=== PATIENT | male | born 1945 | race Caucasian/White ===

== ENCOUNTER 2017-04-17 08:10 | Day surgery (SDC) | payer MEDICARE, BC ==
[~2017-04-17 08:10] MED LIST: Lactated Ringers 1,000 ML IV SCH
[2017-04-17] MEDS ORDERED: fentaNYL 100 MCG/2 ML SDV ONE (09:19)
[2017-04-17] MEDS ORDERED: Ketorolac 30 MG/ML SDV ONE (09:21)
[2017-04-17] MEDS ORDERED: Midazolam 1 MG/ML 2 ML SDV ONE (09:21)
[2017-04-17] MEDS ORDERED: Propofol 200 MG/20 ML SDV ONE (09:22)
[2017-04-17] MEDS ORDERED: Bupivacaine 0.25%/EPINEPHrine 1:200,000 30 ML SDV ONE (10:04)
[2017-04-17] MEDS ORDERED: Bupivacaine 0.25%/EPINEPHrine 1:200,000 30 ML SDV INFILT ONE ×2 (10:19)
[2017-04-17] MEDS ORDERED: Acetaminophen/HYDROcodone 325-5 MG Tab PO PRN (12:28)
[2017-04-17 13:06] VITALS: BP 114/72
--- NOTE | 2017-04-17 14:12 | OR ---
PREOPERATIVE DIAGNOSIS: Symptomatic umbilical hernia. POSTOPERATIVE DIAGNOSIS: Symptomatic umbilical hernia. PROCEDURE PROPOSED: Umbilical hernia repair. PROCEDURE DONE: Umbilical hernia repair. BOTTLE WASHER: Zeinab. INDICATION: This is a 71-year-old gentleman with a symptomatic longstanding umbilical hernia, of not very large size who now comes in for elective repair. TECHNIQUE: The patient was brought to the operative suite, given MAC anesthesia with propofol. His abdomen had been sterilely prepped and draped and the sub umbilical region was then locally anesthetized with 0.25% Marcaine with epinephrine and a transverse infraumbilical incision was made, carried down through the subcutaneous tissue to the underlying fascia. I then dissected the hernia sac free from the undersurface of the skin of the umbilicus. I was then able to have my nurse place 2 retractors and I dissected the hernia sac free flush with the fascia level; reduced the preperitoneal fat contents and the defect was closed transversely with approximately 6 stitches of interrupted 0- Ethibond suture. The base of the umbilicus was then anchored to the fascia with 2 stitches of 3-0 Vicryl and the subcutaneous tissue was then reapproximated with interrupted 3-0 Vicryl. The skin was then closed with a subcuticular stitch of 4 Vicryl and a pressure dressing was applied. He tolerated the procedure well with minimal blood loss and was taken back to day surgery in good condition. SCM: 04/17/2017 10:47:48 MODL: 04/17/2017 14:01:45 /[id number]
== END 2017-04-17 13:05 | disposition home or self-care (01) ==
LOC: VM.SDS 08:10
PROVIDERS: ATTEND Surgery
DX: K42.9 Umbilical hernia without obstruction or gangrene (principal); I12.9 Hypertensive chronic kidney disease with stage 1 through stage 4 chronic kidney disease, or unspecified chronic kidney disease; E11.22 Type 2 diabetes mellitus with diabetic chronic kidney disease; N18.3 Chronic kidney disease, stage 3 (moderate); I25.10 Atherosclerotic heart disease of native coronary artery without angina pectoris; G47.30 Sleep apnea, unspecified; G25.81 Restless legs syndrome; Z79.4 Long term (current) use of insulin; Z79.82 Long term (current) use of aspirin; Z79.899 Other long term (current) drug therapy; Z95.810 Presence of automatic (implantable) cardiac defibrillator; Z98.890 Other specified postprocedural states
CPT/HCPCS: 00750; 49585; 82962; A9270; J1885; J2250; J2704; J3010; J7120

== ENCOUNTER 2017-06-19 06:54 | Day surgery (SDC) | payer MEDICARE, BC ==
[2017-06-19] MEDS ORDERED: Lactated Ringers 1,000 ML IV SCH (07:00)
[2017-06-19] MEDS ORDERED: Sodium Chloride 0.9% 10 ML Syringe FLUSH PRN (07:00)
[2017-06-19] MEDS ORDERED: fentaNYL 100 MCG/2 ML SDV ONE (07:40)
[2017-06-19] MEDS ORDERED: Propofol 200 MG/20 ML SDV ONE (07:40)
[2017-06-19 09:33] VITALS: BP 118/85
--- NOTE | 2017-06-19 11:00 | OR ---
PREOPERATIVE DIAGNOSIS: Screening colonoscopy. POSTOPERATIVE DIAGNOSES: 1. Essentially normal colonoscopic exam. 2. Mild sigmoid diverticulosis. PROCEDURE PROPOSED: Total flexible colonoscopy. PROCEDURE DONE: Total flexible colonoscopy. INDICATION: This is a 71-year-old gentleman, who comes in for recommended screening colonoscopy. He has had 1 previously, but it was slightly over 10 years ago. He denies any symptomatology and he has a negative family history for colon cancer. TECHNIQUE: The patient was brought to the endoscopy suite, placed in left lateral decubitus position. He was sedated per GEOCHEMIST with propofol. The flexible video colonoscope was then passed transanally and under visualization advanced to the cecum without difficulty. Examination revealed a normal ascending, transverse, descending, sigmoid, and rectal colon. He did have some mild sigmoid diverticulosis. Otherwise, there was no evidence of any polyps or other abnormalities. The scope was then withdrawn. The patient tolerated the procedure well. IMPRESSION: 1. Essentially normal colonoscopic exam for age. 2. Mild sigmoid diverticulosis. PLAN: I felt the patient should have 1 more examination in 10 years time for screening purposes. SCM: 06/19/2017 08:55:36 MODL: 06/19/2017 10:51:00 /[id number]
== END 2017-06-19 10:12 | disposition home or self-care (01) ==
LOC: VM.SDS 06:54
PROVIDERS: ATTEND Surgery
DX: Z12.11 Encounter for screening for malignant neoplasm of colon (principal); K57.30 Diverticulosis of large intestine without perforation or abscess without bleeding; E11.22 Type 2 diabetes mellitus with diabetic chronic kidney disease; I12.9 Hypertensive chronic kidney disease with stage 1 through stage 4 chronic kidney disease, or unspecified chronic kidney disease; N18.3 Chronic kidney disease, stage 3 (moderate); G47.33 Obstructive sleep apnea (adult) (pediatric); E11.40 Type 2 diabetes mellitus with diabetic neuropathy, unspecified; Z79.4 Long term (current) use of insulin; Z79.899 Other long term (current) drug therapy; N40.0 Benign prostatic hyperplasia without lower urinary tract symptoms
CPT/HCPCS: 00810; 82962; G0121; J2704; J3010; J7120

== ENCOUNTER 2018-11-09 21:29 | Emergency (ER) | payer MEDICARE, BC ==
[2018-11-09 21:42] VITALS: BP 163/92
[2018-11-09] MEDS ORDERED: HYDROmorphone 1 MG/ML Syringe IM ONE (21:49)
[2018-11-09] MEDS ORDERED: diphenhydrAMINE 50 MG/ML SDV IM ONE (21:49)
[2018-11-09] MEDS ORDERED: Prochlorperazine 10 MG/2 ML SDV IM ONE (21:50)
--- NOTE | 2018-11-10 01:12 | EDM.PDOC ---
ED HPI GENERAL MEDICAL PROBLEM - General Chief Complaint: Headache Stated Complaint: headache Time Seen by Provider: 11/09/18 21:36 Source of Information: Reports: Patient History Limitations: Reports: No Limitations - History of Present Illness INITIAL COMMENTS - FREE TEXT/NARRATIVE: Pt. presents to ER with complaints of headache that started earlier today. Pt. has a longstanding history of migraine headaches and was seen in the ER approx. 2 months ago for the same. He received IV pain medication, benadryl and compazine which completely eliminated the discomfort. Pt. denies any head trauma. No fever or chills. No paresthesia to extremities or face. No difficulty with speech or ambulation. Denies any vision loss or change. Onset: Today Location: Reports: Head Quality: Reports: Ache Associated Symptoms: Reports: Nausea/Vomiting Headache Pain Score (Numeric/FACES): 9 - Related Data Allergies Allergy/AdvReac Type Severity Reaction Status Date / Time pramipexole [From Mirapex] Allergy Hallucinati Verified 11/09/18 21:38 ons Home Meds: Home Meds Acetaminophen [Tylenol Extra Strength] 500 mg PO ASDIRECTED PRN 04/11/17 [ History] Aspirin [Halfprin] 81 mg PO DAILY 04/11/17 [History] Cinnamon Bark [Cinnamon] 500 mg PO BID 04/11/17 [History] Docusate Sodium [Colace] 100 mg PO DAILY PRN 04/11/17 [History] Emollient Base [Emollient] 1 applic TOP BEDTIME 04/11/17 [History] Gluc HCl/Csa/Samir Hy/Hyalur Ac [Glucosamine Chondroitin] 1 cap PO BID 04/11/17 [ History] Multivitamins w-Iron/Ca/FA/Min [Thera M Plus] 2 tab PO DAILY 04/11/17 [History] Polyethylene Glycol 3350 [MiraLAX] 1 packet PO DAILY PRN 04/11/17 [History] Pregabalin [Lyrica] 100 g PO BID 04/11/17 [History] Pyridoxine HCl (Vitamin B6) [Pyridoxine HCl] 100 mg PO DAILY 04/11/17 [History] Rizatriptan Benzoate [Maxalt] 10 mg PO ASDIRECTED PRN 04/11/17 [History] Sotalol [Betapace] 80 mg PO BID 04/11/17 [History] atorvaSTATin [Lipitor] 10 mg PO DAILY 04/11/17 [History] Insulin Aspart [NovoLOG] 10 unit SUBCUT ACDINNER 06/19/17 [History] Ascorbate Calcium [Vitamin C] 500 mg PO DAILY 11/09/18 [History] Cholecalciferol (Vitamin D3) [D3 Dots] 2,000 unit PO DAILY 11/09/18 [History] Donepezil HCl [Aricept] 10 mg PO DAILY 11/09/18 [History] Ferrous Sulfate [High Potency Iron] 134 mg PO DAILY 11/09/18 [History] Insulin Degludec/Liraglutide [Xultophy 100 Unit-3.6 mg/ml] 40 ml SQ DAILY [History] Ipratropium [Atrovent HFA Inh] 1 puff .XX ASDIRECTED 11/09/18 [History] Magnesium Oxide [Magnesium] 500 mg PO DAILY 11/09/18 [History] metFORMIN [Glucophage XR] 500 mg PO DAILY 11/09/18 [History] Past Medical History Other HEENT History: white patch on uvula on left side, is seeing ENT dr. Cardiovascular History: Reports: High Cholesterol, Hypertension Other Cardiovascular History: hx V-Tach. Has defibrillateR. LOW HDL Respiratory History: Reports: Sleep Apnea Gastrointestinal History: Reports: Chronic Constipation, Other (See Below) Other Gastrointestinal History: umbilical hernia Genitourinary History: Reports: BPH, Chronic Renal Insuffiency, Other (See Below ) Other Genitourinary History: CKD III. ED Musculoskeletal History: Reports: Osteoarthritis, Other (See Below) Other Musculoskeletal History: RLS. SCOLIOLSIS Neurological History: Reports: Migraines, Neuropathy, Diabetic Psychiatric History: Reports: None Endocrine/Metabolic History: Reports: Diabetes, Type II Hematologic History: Reports: Idiopathic Thrombocytopenia Dermatologic History: Reports: None - Past Surgical History Cardiovascular Surgical History: Reports: AICD Other Cardiovascular Surgeries/Procedures: internal defibrillater GI Surgical History: Reports: Colonoscopy, Hernia Repair/Other Musculoskeletal Surgical History: Reports: Knee Replacement, Other (See Below) Other Musculoskeletal Surgeries/Procedures:: Dupuytren contracture Rt Hand. Trigger finger release Social & Family History - Tobacco Use Smoking Status *Q: Never Smoker - Caffeine Use Caffeine Use: Reports: Coffee ED ROS GENERAL - Review of Systems Review Of Systems: See Below Constitutional: Reports: No Symptoms HEENT: Reports: No Symptoms Respiratory: Reports: No Symptoms Cardiovascular: Reports: No Symptoms Endocrine: Reports: No Symptoms GI/Abdominal: Reports: No Symptoms : Reports: No Symptoms Musculoskeletal: Reports: No Symptoms Skin: Reports: No Symptoms Neurological: Reports: Headache. Denies: Confusion, Dizziness, Numbness, Paresthesia, Trouble Speaking, Difficulty Walking, Change in Speech, Gait Disturbance Psychiatric: Reports: No Symptoms Hematologic/Lymphatic: Reports: No Symptoms Immunologic: Reports: No Symptoms ED EXAM, GENERAL - Physical Exam Exam: See Below Exam Limited By: No Limitations General Appearance: Alert, WD/WN, No Apparent Distress Eye Exam: Bilateral Eye: EOMI, Normal Fundi, Normal Inspection, PERRL Respiratory/Chest: No Respiratory Distress, Lungs Clear, Normal Breath Sounds, No Accessory Muscle Use, Chest Non-Tender Cardiovascular: Normal Peripheral Pulses, Regular Rate, Rhythm, No Edema, No Gallop, No JVD, No Murmur, No Rub Extremities: Normal Inspection, Normal Range of Motion, Non-Tender, Normal Capillary Refill, No Pedal Edema Neurological: Alert, Oriented, CN II-XII Intact, Normal Cognition, Normal Gait, Normal Reflexes, No Motor/Sensory Deficits Course - Vital Signs Last Recorded V/S: Last Vital Signs Temp 35.8 C 11/09/18 21:38 Pulse 61 11/09/18 21:38 Resp 18 11/09/18 21:38 BP 163/92 H 11/09/18 21:38 Pulse Ox 95 11/09/18 21:38 - Orders/Labs/Meds Meds: Medications Discontinued Medications Generic Name Dose Route Start Last Admin Trade Name Bo PRN Reason Stop Dose Admin Diphenhydramine HCl 50 mg 11/09/18 21:49 11/09/18 22:04 Benadryl IM 11/09/18 21:50 50 mg ONETIME ONE Administration Hydromorphone HCl 1 mg 11/09/18 21:49 11/09/18 22:04 Dilaudid IM 11/09/18 21:50 1 mg ONETIME ONE Administration Prochlorperazine Edisylate 10 mg 11/09/18 21:50 11/09/18 22:04 Compazine IM 11/09/18 21:51 10 mg ONETIME ONE Administration - Re-Assessments/Exams Free Text/Narrative Re-Assessment/Exam: 11/10/18 01:11 Pt. was given dilaudid 1 mg IM, compazine 10 mg IM, and benadryl 50mg IM. He was observed and reported a complete resolution of his symptoms. Departure - Departure Time of Disposition: 22:32 Disposition: Home, Self-Care 01 Condition: Good Clinical Impression: Migraine, Migraine - Discharge Information Instructions: Migraine Headache Referrals: Genevieve Washburn, [Primary Care Provider] - Forms: ED Department Discharge Additional Instructions: Home to rest. Continue with current medications. Return to ER if you have worsening headache, visual changes, numbness/tingling in extremities or face, difficulty with speaking/walking. - Assessment/Plan Plan: Home to rest. Continue with current medications. Return to ER if you have worsening headache, visual changes, numbness/tingling in extremities or face, difficulty with speaking/walking.
== END 2018-11-09 22:32 | disposition home or self-care (01) ==
LOC: VM.ED 21:29
DX: G43.909 Migraine, unspecified, not intractable, without status migrainosus (principal); E11.22 Type 2 diabetes mellitus with diabetic chronic kidney disease; E11.40 Type 2 diabetes mellitus with diabetic neuropathy, unspecified; I12.9 Hypertensive chronic kidney disease with stage 1 through stage 4 chronic kidney disease, or unspecified chronic kidney disease; N18.3 Chronic kidney disease, stage 3 (moderate); Z88.8 Allergy status to other drugs, medicaments and biological substances; Z79.82 Long term (current) use of aspirin; Z79.899 Other long term (current) drug therapy; Z79.4 Long term (current) use of insulin
CPT/HCPCS: 96372; 99283; J0780; J1170; J1200

== ENCOUNTER 2019-03-01 17:18 | Emergency (ER) | payer MEDICARE, BC ==
[2019-03-01] MEDS ORDERED: Sodium Chloride 0.9% 10 ML Syringe FLUSH PRN (17:28)
[2019-03-01] MEDS ORDERED: diphenhydrAMINE 50 MG/ML SDV IVPUSH ONE (17:28)
[2019-03-01] MEDS ORDERED: Metoclopramide 10 MG/2 ML SDV IVPUSH ONE (17:28)
[2019-03-01] MEDS ORDERED: Sodium Chloride 0.9% 1,000 ML IV ONE (17:28)
[2019-03-01] MEDS ORDERED: Prochlorperazine 10 MG/2 ML SDV IV ONE (17:28)
--- NOTE | 2019-03-01 17:35 | EDM.PDOC ---
ED HPI GENERAL MEDICAL PROBLEM - General Chief Complaint: Headache Stated Complaint: headache Time Seen by Provider: 03/01/19 17:22 Source of Information: Reports: Patient History Limitations: Reports: No Limitations - History of Present Illness INITIAL COMMENTS - FREE TEXT/NARRATIVE: Patient comes into the emergency department with complaint of migraine headache. Patient states his headache started approximately 4 hours ago. He does have a history of migraines and states that he often gets them on a weekly basis. He did take his medications of Triptans prior to arrival but they have not worked-this happens from time to time he states. have not been able to localize any triggers that causes migraines. They have tried reducing alcohol and also changing diet with little changes in his migraine activity. He states that he has noticed that when he gets stressed or has tension in his neck he often gets migraine shortly after. 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 He denies having any auras with his migraines. He admits to becoming nauseated when he has migraines. He denies any vomiting, chest pain, shortness of breath, change in vision, or difficulty with speech. He states that the symptoms he is experiencing today are similar to all of his other migraines that he does have. He denies of any recent illnesses or fevers. Nothing makes the pain worse or better. Describes it as a throbbing sensation at the base of the skull. Onset: Sudden Location: Reports: Head Quality: Reports: Dull, Throbbing Severity: Moderate Improves with: Reports: None Worsens with: Reports: None Context: Reports: Other Associated Symptoms: Reports: Nausea/Vomiting Treatments CHANNEL ROUGHER: Reports: Other Medication(s) Headache Pain Score (Numeric/FACES): 8 - Related Data Allergies Allergy/AdvReac Type Severity Reaction Status Date / Time pramipexole [From Mirapex] Allergy Hallucinati Verified 03/01/19 17:56 ons tetanus and diphtheria Allergy Other Verified 03/01/19 17:56 toxoids Home Meds: Home Meds Acetaminophen [Tylenol Extra Strength] 500 mg PO ASDIRECTED PRN 04/11/17 [ History] Aspirin [Halfprin] 81 mg PO DAILY 04/11/17 [History] Cinnamon Bark [Cinnamon] 500 mg PO BID 04/11/17 [History] Docusate Sodium [Colace] 100 mg PO DAILY PRN 04/11/17 [History] Emollient Base [Emollient] 1 applic TOP BEDTIME 04/11/17 [History] Gluc HCl/Csa/Samir Hy/Hyalur Ac [Glucosamine Chondroitin] 1 cap PO BID 04/11/17 [ History] Multivitamins w-Iron/Ca/FA/Min [Thera M Plus] 2 tab PO DAILY 04/11/17 [History] Polyethylene Glycol 3350 [MiraLAX] 1 packet PO DAILY PRN 04/11/17 [History] Pregabalin [Lyrica] 100 g PO BID 04/11/17 [History] Pyridoxine HCl (Vitamin B6) [Pyridoxine HCl] 100 mg PO DAILY 04/11/17 [History] Rizatriptan Benzoate [Maxalt] 10 mg PO ASDIRECTED PRN 04/11/17 [History] Sotalol [Betapace] 80 mg PO BID 04/11/17 [History] atorvaSTATin [Lipitor] 10 mg PO DAILY 04/11/17 [History] Insulin Aspart [NovoLOG] 10 unit SUBCUT ACDINNER 06/19/17 [History] Ascorbate Calcium [Vitamin C] 500 mg PO DAILY 11/09/18 [History] Cholecalciferol (Vitamin D3) [D3 Dots] 2,000 unit PO DAILY 11/09/18 [History] Donepezil HCl [Aricept] 10 mg PO DAILY 11/09/18 [History] Ferrous Sulfate [High Potency Iron] 134 mg PO DAILY 11/09/18 [History] Insulin Degludec/Liraglutide [Xultophy 100 Unit-3.6 mg/ml] 42 unit SQ DAILY 04/22 [History] Magnesium Oxide [Magnesium] 500 mg PO DAILY 11/09/18 [History] metFORMIN [Glucophage XR] 500 mg PO DAILY 11/09/18 [History] Past Medical History Other HEENT History: white patch on uvula on left side, is seeing ENT dr. Cardiovascular History: Reports: High Cholesterol, Hypertension Other Cardiovascular History: hx V-Tach. Has defibrillateR. LOW HDL Respiratory History: Reports: Sleep Apnea Gastrointestinal History: Reports: Chronic Constipation, Other (See Below) Other Gastrointestinal History: umbilical hernia Genitourinary History: Reports: BPH, Chronic Renal Insuffiency, Other (See Below ) Other Genitourinary History: CKD III. ED Musculoskeletal History: Reports: Osteoarthritis, Other (See Below) Other Musculoskeletal History: RLS. SCOLIOLSIS Neurological History: Reports: Migraines, Neuropathy, Diabetic Psychiatric History: Reports: None Endocrine/Metabolic History: Reports: Diabetes, Type II Hematologic History: Reports: Idiopathic Thrombocytopenia Dermatologic History: Reports: None - Past Surgical History Cardiovascular Surgical History: Reports: AICD Other Cardiovascular Surgeries/Procedures: internal defibrillater GI Surgical History: Reports: Colonoscopy, Hernia Repair/Other Musculoskeletal Surgical History: Reports: Knee Replacement, Other (See Below) Other Musculoskeletal Surgeries/Procedures:: Dupuytren contracture Rt Hand. Trigger finger release Social & Family History - Caffeine Use Caffeine Use: Reports: Coffee ED ROS GENERAL - Review of Systems Review Of Systems: See Below Constitutional: Reports: No Symptoms HEENT: Reports: No Symptoms Respiratory: Reports: No Symptoms Cardiovascular: Reports: No Symptoms Endocrine: Reports: No Symptoms GI/Abdominal: Reports: No Symptoms : Reports: No Symptoms Musculoskeletal: Reports: No Symptoms Skin: Reports: No Symptoms Neurological: Reports: Headache Psychiatric: Reports: No Symptoms Hematologic/Lymphatic: Reports: No Symptoms - Physical Exam Exam: See Below Exam Limited By: No Limitations General Appearance: Alert, WD/WN, No Apparent Distress Eye Exam: Bilateral Eye: EOMI, PERRL Respiratory/Chest: No Respiratory Distress, Lungs Clear, Normal Breath Sounds, No Accessory Muscle Use, Chest Non-Tender Cardiovascular: Normal Peripheral Pulses, No Edema Neuro Exam (Abbreviated): Alert, Oriented, CN II-XII Intact, Normal Cognition, Normal Gait, No Motor/Sensory Deficits Back Exam: Normal Inspection, Full Range of Motion Extremities: Normal Inspection, Normal Range of Motion, No Pedal Edema, Normal Capillary Refill Psychiatric: Normal Affect, Normal Mood Skin Exam: Warm, Dry, Intact, Normal Color Course - Vital Signs Last Recorded V/S: Last Vital Signs Temp 36.6 C 03/01/19 17:50 Pulse 73 03/01/19 17:50 Resp 14 03/01/19 17:50 BP 145/100 H 03/01/19 17:50 Pulse Ox 96 03/01/19 17:50 - Orders/Labs/Meds Orders: Active Orders 24 hr Category Date Time Status Sodium Chloride 0.9% [Saline Flush] Med 03/01/19 17:28 Active 10 ml FLUSH ASDIRECTED PRN Peripheral IV Insertion Adult [OM.PC] Stat Oth 03/01/19 17:28 Ordered Medication Orders Sodium Chloride (Saline Flush) 10 ml FLUSH ASDIRECTED PRN PRN Reason: Keep Vein Open Meds: Medications Generic Name Dose Route Start Last Admin Trade Name Freq PRN Reason Stop Dose Admin Sodium Chloride 10 ml 03/01/19 17:28 Saline Flush FLUSH ASDIRECTED PRN Keep Vein Open Discontinued Medications Generic Name Dose Route Start Last Admin Trade Name Freq PRN Reason Stop Dose Admin Diphenhydramine HCl 50 mg 03/01/19 17:28 03/01/19 17:42 Benadryl IVPUSH 03/01/19 17:29 50 mg ONETIME ONE Administration Sodium Chloride 1,000 mls @ 1,000 mls/hr 03/01/19 17:28 03/01/19 17:37 Normal Saline IV 03/01/19 18:27 1,000 mls/hr ONETIME ONE Administration Metoclopramide HCl 10 mg 03/01/19 17:28 03/01/19 17:38 Reglan IVPUSH 03/01/19 17:29 10 mg ONETIME ONE Administration Prochlorperazine Edisylate 10 mg 03/01/19 17:28 03/01/19 17:40 Compazine IV 03/01/19 17:29 10 mg ONETIME ONE Administration Departure - Departure Time of Disposition: 18:45 Disposition: Home, Self-Care 01 Condition: Good Clinical Impression: Migraine - Discharge Information *PRESCRIPTION DRUG MONITORING PROGRAM REVIEWED*: Not Applicable *COPY OF PRESCRIPTION DRUG MONITORING REPORT IN PATIENT FERNANDA: Not Applicable Instructions: Recurrent Migraine Headache Forms: ED Department Discharge Additional Instructions: 1. rest 2. May need to take Tylenol or ibuprofen for the next 24 hours to ensure the migraine is gone 3. Increase your water intake 4. Continue to avoid foods that can potentially cause the migraine 5. Follow up as needed 6. Return if symptoms reappear or get worse 7. Activity and diet as tolerated 8. Call with any questions or concerns - Problem List Review Problem List Initiated/Reviewed/Updated: Yes - My Orders Last 24 Hours: My Active Orders 03/01/19 17:28 Sodium Chloride 0.9% [Saline Flush] 10 ml FLUSH ASDIRECTED PRN Peripheral IV Insertion Adult [OM.PC] Stat - Assessment/Plan Last 24 Hours: My Active Orders 03/01/19 17:28 Sodium Chloride 0.9% [Saline Flush] 10 ml FLUSH ASDIRECTED PRN Peripheral IV Insertion Adult [OM.PC] Stat Assessment:: 1. migraine without aura Plan: 1. IV with fluids given 2. Compazine, Benadryl and Reglan given in the ER 3. Pt is feeling much better after the above was given. He would like to go home and rest. 4. Education regarding medication, diet, and follow up was given 5. All questions and concerns were discussed prior to discharge
[2019-03-01 17:51] VITALS: BP 145/100
== END 2019-03-01 19:04 | disposition home or self-care (01) ==
LOC: VM.ED 17:18
DX: G43.009 Migraine without aura, not intractable, without status migrainosus (principal); I12.9 Hypertensive chronic kidney disease with stage 1 through stage 4 chronic kidney disease, or unspecified chronic kidney disease; N18.3 Chronic kidney disease, stage 3 (moderate); E11.22 Type 2 diabetes mellitus with diabetic chronic kidney disease; Z88.1 Allergy status to other antibiotic agents; Z88.7 Allergy status to serum and vaccine; Z79.82 Long term (current) use of aspirin; E78.00 Pure hypercholesterolemia, unspecified; Z79.899 Other long term (current) drug therapy; Z79.4 Long term (current) use of insulin
CPT/HCPCS: 96361; 96374; 96375; 99283-25; J0780; J1200; J2765; J7030

== ENCOUNTER 2019-05-05 00:45 | Emergency (ER) | payer MEDICARE, BC ==
[2019-05-05] MEDS ORDERED: Prochlorperazine 10 MG/2 ML SDV IM ONE (00:58)
[2019-05-05] MEDS ORDERED: diphenhydrAMINE 50 MG/ML SDV IM ONE (00:59)
[2019-05-05] MEDS ORDERED: Ketorolac 30 MG/ML SDV IM ONE (00:59)
[2019-05-05] MEDS ORDERED: Sodium Chloride 0.9% 10 ML Syringe FLUSH PRN (01:01)
[2019-05-05] MEDS ORDERED: diphenhydrAMINE 50 MG/ML SDV IVPUSH ONE (01:02)
[2019-05-05] MEDS ORDERED: HYDROmorphone 1 MG/ML Syringe IVPUSH ONE (01:02)
[2019-05-05] MEDS ORDERED: Prochlorperazine 10 MG/2 ML SDV IV ONE (01:03)
[2019-05-05 05:26] VITALS: BP 163/103
--- NOTE | 2019-05-05 06:12 | EDM.PDOC ---
ED HPI GENERAL MEDICAL PROBLEM - General Chief Complaint: Headache Stated Complaint: Migraine headache Time Seen by Provider: 05/05/19 00:50 Source of Information: Reports: Patient History Limitations: Reports: No Limitations - History of Present Illness INITIAL COMMENTS - FREE TEXT/NARRATIVE: Pt. presents to ER with complaints of migraine headache. Pt. has a longstanding history of migraines and is a frequent visitor to our facility for migraine rescue treatment. Pt. states that he took his maxalt twice tonight (onset around 1930) with no help in discomfort. Denies any trauma. No fever or chills. No chest pain or shortness of breath. Pt. states that the pain encompasses the entire head. 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 Denies any neck pain. Denies any focal neuro symptoms such as numbness/tingling in extremities, difficulty with speech or ambulation. Onset Date: 05/04/19 Location: Reports: Head Quality: Reports: Throbbing Treatments BUSINESS ADMINISTRATOR: Reports: Other (see below) Other Treatments BUSINESS ADMINISTRATOR: Maxalt x2 Left occipital headache Pain Score (Numeric/FACES): 2 - Related Data Allergies Allergy/AdvReac Type Severity Reaction Status Date / Time pramipexole [From Mirapex] Allergy Hallucinati Verified 05/05/19 05:18 ons tetanus and diphtheria Allergy Other Verified 05/05/19 05:18 toxoids Home Meds: Home Meds Acetaminophen [Tylenol Extra Strength] 500 mg PO ASDIRECTED PRN 04/11/17 [ History] Aspirin [Halfprin] 81 mg PO DAILY 04/11/17 [History] Cinnamon Bark [Cinnamon] 500 mg PO BID 04/11/17 [History] Docusate Sodium [Colace] 100 mg PO DAILY PRN 04/11/17 [History] Emollient Base [Emollient] 1 applic TOP BEDTIME 04/11/17 [History] Gluc HCl/Csa/Samir Hy/Hyalur Ac [Glucosamine Chondroitin] 1 cap PO BID 04/11/17 [ History] Multivitamins w-Iron/Ca/FA/Min [Thera M Plus] 2 tab PO DAILY 04/11/17 [History] Polyethylene Glycol 3350 [MiraLAX] 1 packet PO DAILY PRN 04/11/17 [History] Pregabalin [Lyrica] 100 g PO BID 04/11/17 [History] Pyridoxine HCl (Vitamin B6) [Pyridoxine HCl] 100 mg PO DAILY 04/11/17 [History] Rizatriptan Benzoate [Maxalt] 10 mg PO ASDIRECTED PRN 04/11/17 [History] Sotalol [Betapace] 80 mg PO BID 04/11/17 [History] atorvaSTATin [Lipitor] 10 mg PO DAILY 04/11/17 [History] Insulin Aspart [NovoLOG] 10 unit SUBCUT ACDINNER 06/19/17 [History] Ascorbate Calcium [Vitamin C] 500 mg PO DAILY 11/09/18 [History] Cholecalciferol (Vitamin D3) [D3 Dots] 2,000 unit PO DAILY 11/09/18 [History] Donepezil HCl [Aricept] 10 mg PO DAILY 11/09/18 [History] Ferrous Sulfate [High Potency Iron] 134 mg PO DAILY 11/09/18 [History] Insulin Degludec/Liraglutide [Xultophy 100 Unit-3.6 mg/ml] 42 unit SQ DAILY 04/22 [History] Magnesium Oxide [Magnesium] 500 mg PO DAILY 11/09/18 [History] metFORMIN [Glucophage XR] 500 mg PO DAILY 11/09/18 [History] Past Medical History Other HEENT History: white patch on uvula on left side, is seeing ENT dr. Cardiovascular History: Reports: High Cholesterol, Hypertension Other Cardiovascular History: hx V-Tach. Has defibrillateR. LOW HDL Respiratory History: Reports: Sleep Apnea Gastrointestinal History: Reports: Chronic Constipation, Other (See Below) Other Gastrointestinal History: umbilical hernia Genitourinary History: Reports: BPH, Chronic Renal Insuffiency, Other (See Below ) Other Genitourinary History: CKD III. ED Musculoskeletal History: Reports: Osteoarthritis, Other (See Below) Other Musculoskeletal History: RLS. SCOLIOLSIS Neurological History: Reports: Migraines, Neuropathy, Diabetic Psychiatric History: Reports: None Endocrine/Metabolic History: Reports: Diabetes, Type II Hematologic History: Reports: Idiopathic Thrombocytopenia Dermatologic History: Reports: None - Past Surgical History Cardiovascular Surgical History: Reports: AICD Other Cardiovascular Surgeries/Procedures: internal defibrillater GI Surgical History: Reports: Colonoscopy, Hernia Repair/Other Musculoskeletal Surgical History: Reports: Knee Replacement, Other (See Below) Other Musculoskeletal Surgeries/Procedures:: Dupuytren contracture Rt Hand. Trigger finger release Social & Family History - Caffeine Use Caffeine Use: Reports: Coffee ED ROS GENERAL - Review of Systems Review Of Systems: See Below Constitutional: Reports: No Symptoms HEENT: Reports: No Symptoms Respiratory: Reports: No Symptoms Cardiovascular: Reports: No Symptoms Endocrine: Reports: No Symptoms GI/Abdominal: Reports: Nausea, Vomiting : Reports: No Symptoms Musculoskeletal: Reports: No Symptoms Skin: Reports: No Symptoms Neurological: Reports: Headache. Denies: Numbness, Paresthesia, Tingling, Trouble Speaking, Weakness, Change in Speech, Gait Disturbance Psychiatric: Reports: No Symptoms Hematologic/Lymphatic: Reports: No Symptoms Immunologic: Reports: No Symptoms ED EXAM, GENERAL - Physical Exam Exam: See Below Exam Limited By: No Limitations General Appearance: Alert, WD/WN, No Apparent Distress Eye Exam: Bilateral Eye: EOMI, Normal Fundi, Normal Inspection, PERRL Nose: Normal Inspection, Normal Mucosa, No Blood Neck: Normal Inspection, Supple, Non-Tender, Full Range of Motion Neurological: Alert, Oriented, CN II-XII Intact, Normal Cognition, Normal Gait, Normal Reflexes, No Motor/Sensory Deficits Psychiatric: Normal Affect, Normal Mood Skin Exam: Warm, Dry, Intact, Normal Color, No Rash Course - Vital Signs Last Recorded V/S: Last Vital Signs Temp 36.3 C 05/05/19 00:45 Pulse 70 05/05/19 01:32 Resp 16 05/05/19 01:32 BP 163/103 H 05/05/19 01:32 Pulse Ox 96 05/05/19 00:45 - Orders/Labs/Meds Orders: Active Orders 24 hr Category Date Time Status Peripheral IV Insertion Adult [OM.PC] Routine Oth 05/05/19 01:02 Ordered Meds: Medications Discontinued Medications Generic Name Dose Route Start Last Admin Trade Name Freq PRN Reason Stop Dose Admin Diphenhydramine HCl 50 mg 05/05/19 00:59 Benadryl IM 05/05/19 01:00 ONETIME ONE Diphenhydramine HCl 50 mg 05/05/19 01:02 05/05/19 01:14 Benadryl IVPUSH 05/05/19 01:03 50 mg ONETIME ONE Administration Hydromorphone HCl 1 mg 05/05/19 01:02 05/05/19 01:16 Dilaudid IVPUSH 05/05/19 01:03 1 mg ONETIME ONE Administration Ketorolac Tromethamine 30 mg 05/05/19 00:59 Toradol IM 05/05/19 01:00 ONETIME ONE Prochlorperazine Edisylate 10 mg 05/05/19 00:58 Compazine IM 05/05/19 00:59 ONETIME ONE Prochlorperazine Edisylate 10 mg 05/05/19 01:03 05/05/19 01:10 Compazine IV 05/05/19 01:04 10 mg ONETIME ONE Administration Sodium Chloride 10 ml 05/05/19 01:01 Saline Flush FLUSH ASDIRECTED PRN Keep Vein Open Departure - Departure Time of Disposition: 02:00 Disposition: Home, Self-Care 01 Condition: Good Clinical Impression: Migraine - Discharge Information Instructions: Migraine Headache, [id number] Referrals: PCP,None [Primary Care Provider] - Forms: ED Department Discharge Additional Instructions: Continue with current medications Return to ER if symptoms get worse again Recheck in clinic in 7-10 days - My Orders Last 24 Hours: My Active Orders 05/05/19 01:02 Peripheral IV Insertion Adult [OM.PC] Routine - Assessment/Plan Last 24 Hours: My Active Orders 05/05/19 01:02 Peripheral IV Insertion Adult [OM.PC] Routine Plan: Continue with current medications Return to ER if symptoms get worse again Recheck in clinic in 7-10 days
== END 2019-05-05 02:04 | disposition home or self-care (01) ==
LOC: VM.ED 00:45
DX: G43.909 Migraine, unspecified, not intractable, without status migrainosus (principal); I12.9 Hypertensive chronic kidney disease with stage 1 through stage 4 chronic kidney disease, or unspecified chronic kidney disease; N18.3 Chronic kidney disease, stage 3 (moderate); E11.22 Type 2 diabetes mellitus with diabetic chronic kidney disease; E11.40 Type 2 diabetes mellitus with diabetic neuropathy, unspecified; Z88.7 Allergy status to serum and vaccine; Z79.82 Long term (current) use of aspirin; Z79.4 Long term (current) use of insulin; Z79.899 Other long term (current) drug therapy
CPT/HCPCS: 96374; 96375; 99283-25; J0780; J1170; J1200

== ENCOUNTER 2020-07-26 04:39 | Emergency (ER) | payer MEDICARE, BC ==
[2020-07-26] MEDS ORDERED: Sodium Chloride 0.9% 10 ML Syringe FLUSH PRN (04:53)
[2020-07-26] MEDS ORDERED: Prochlorperazine 10 MG/2 ML SDV IV ONE (04:54)
[2020-07-26] MEDS ORDERED: Ketorolac 15 MG/ML SDV IVPUSH ONE (04:55)
[2020-07-26] MEDS ORDERED: HYDROmorphone 1 MG/ML Syringe IVPUSH ONE (04:55)
--- NOTE | 2020-07-26 05:19 | EDM.PDOC ---
ED HPI GENERAL MEDICAL PROBLEM - General Chief Complaint: Headache Stated Complaint: migraine Time Seen by Provider: 07/26/20 04:50 Source of Information: Reports: Patient History Limitations: Reports: No Limitations - History of Present Illness INITIAL COMMENTS - FREE TEXT/NARRATIVE: Pt. presents to ER with complaints of migraine headache. He states that the symptoms started last evening after watching a football game. Pt. has a longstanding history of migraines that are usually abated with Maxalt. He did take this twice during the evening, along with benadryl this AM which he states helped some, but states that he is still on a lot of discomfort. Pt. complains of nausea. He states that this is similar to migraines that he has had in the past. Pt. denies any fever or chills. No recent head trauma. Denies any chest pain, shortness of breath, numbness/tingling, difficulty with speech or ambulation, or other worrisome signs/symptoms. Pt. denies any aura, visual changes, recent illness. He does not know of any specific trigger for the migraine tonight. Onset Date: 07/25/20 Onset Time: 23:00 Location: Reports: Head, Generalized Improves with: Reports: Rest Worsens with: Reports: Movement Associated Symptoms: Reports: Headaches, Nausea/Vomiting Right Headache Pain Score (Numeric/FACES): 8 - Related Data Allergies Allergy/AdvReac Type Severity Reaction Status Date / Time pramipexole [From Mirapex] Allergy Hallucinati Verified 05/05/19 05:18 ons tetanus and diphtheria Allergy Other Verified 05/05/19 05:18 toxoids Home Meds: Home Meds Acetaminophen [Tylenol Extra Strength] 500 mg PO ASDIRECTED PRN 04/11/17 [History] Aspirin [Halfprin] 81 mg PO DAILY 04/11/17 [History] Cinnamon Bark [Cinnamon] 500 mg PO BID 04/11/17 [History] Docusate Sodium [Colace] 100 mg PO DAILY PRN 04/11/17 [History] Emollient Base [Emollient] 1 applic TOP BEDTIME 04/11/17 [History] Glucosam/Chond/Collagen/Hyalur [Glucosamine Chondroitin] 1 cap PO BID 04/11/17 [History] Multivitamins w-Iron/Ca/FA/Min [Thera M Plus] 2 tab PO DAILY 04/11/17 [History] Polyethylene Glycol 3350 [MiraLAX] 1 packet PO DAILY PRN 04/11/17 [History] Pregabalin [Lyrica] 100 g PO BID 04/11/17 [History] Pyridoxine HCl (Vitamin B6) [Pyridoxine HCl] 100 mg PO DAILY 04/11/17 [History] Rizatriptan Benzoate [Maxalt] 10 mg PO ASDIRECTED PRN 04/11/17 [History] Sotalol [Betapace] 80 mg PO BID 04/11/17 [History] atorvaSTATin [Lipitor] 10 mg PO DAILY 04/11/17 [History] Insulin Aspart [NovoLOG] 10 unit SUBCUT ACDINNER 06/19/17 [History] Ascorbate Calcium [Vitamin C] 500 mg PO DAILY 11/09/18 [History] Cholecalciferol (Vitamin D3) [D3 Dots] 2,000 unit PO DAILY 11/09/18 [History] Donepezil HCl [Aricept] 10 mg PO DAILY 11/09/18 [History] Ferrous Sulfate [High Potency Iron] 134 mg PO DAILY 11/09/18 [History] Insulin Degludec/Liraglutide [Xultophy 100 Unit-3.6 mg/ml] 42 unit SQ DAILY 11/09/18 [History] Magnesium Oxide [Magnesium] 500 mg PO DAILY 11/09/18 [History] metFORMIN [Glucophage XR] 500 mg PO DAILY 11/09/18 [History] Past Medical History Other HEENT History: white patch on uvula on left side, is seeing ENT dr. Cardiovascular History: Reports: High Cholesterol, Hypertension Other Cardiovascular History: hx V-Tach. Has defibrillateR. LOW HDL Respiratory History: Reports: Sleep Apnea Gastrointestinal History: Reports: Chronic Constipation, Other (See Below) Other Gastrointestinal History: umbilical hernia Genitourinary History: Reports: BPH, Chronic Renal Insuffiency, Other (See Below) Other Genitourinary History: CKD III. ED Musculoskeletal History: Reports: Osteoarthritis, Other (See Below) Other Musculoskeletal History: RLS. SCOLIOLSIS Neurological History: Reports: Migraines, Neuropathy, Diabetic Psychiatric History: Reports: None Endocrine/Metabolic History: Reports: Diabetes, Type II Hematologic History: Reports: Idiopathic Thrombocytopenia Dermatologic History: Reports: None - Past Surgical History Cardiovascular Surgical History: Reports: AICD Other Cardiovascular Surgeries/Procedures: internal defibrillater GI Surgical History: Reports: Colonoscopy, Hernia Repair/Other Musculoskeletal Surgical History: Reports: Knee Replacement, Other (See Below) Other Musculoskeletal Surgeries/Procedures:: Dupuytren contracture Rt Hand. Trigger finger release Social & Family History - Caffeine Use Caffeine Use: Reports: Coffee ED ROS GENERAL - Review of Systems Review Of Systems: See Below Constitutional: Reports: No Symptoms HEENT: Reports: No Symptoms Respiratory: Reports: No Symptoms Cardiovascular: Reports: No Symptoms Endocrine: Reports: No Symptoms GI/Abdominal: Reports: Nausea, Vomiting : Reports: No Symptoms Musculoskeletal: Reports: No Symptoms Skin: Reports: No Symptoms Neurological: Reports: Headache. Denies: Confusion, Dizziness, Numbness, Paresthesia, Pre-Existing Deficit, Seizure, Syncope, Tingling, Tremors, Trouble Speaking, Difficulty Walking, Weakness, Change in Speech Psychiatric: Reports: No Symptoms Hematologic/Lymphatic: Reports: No Symptoms Immunologic: Reports: No Symptoms ED EXAM, GENERAL - Physical Exam Exam: See Below Exam Limited By: No Limitations General Appearance: Alert, WD/WN, No Apparent Distress Eye Exam: Bilateral Eye: EOMI, Normal Fundi, Normal Inspection, PERRL Neurological: Alert, Oriented, CN II-XII Intact, Normal Cognition, Normal Gait, Normal Reflexes, No Motor/Sensory Deficits Psychiatric: Normal Affect, Normal Mood Skin Exam: Warm, Dry, Intact, Normal Color Course - Vital Signs Last Recorded V/S: Last Vital Signs Temp 36.6 C 07/26/20 04:46 Pulse 70 07/26/20 04:46 Resp 18 07/26/20 04:46 BP 171/100 H 07/26/20 04:46 Pulse Ox 96 07/26/20 04:46 - Orders/Labs/Meds Orders: Active Orders 24 hr Category Date Time Status Sodium Chloride 0.9% [Saline Flush] Med 07/26/20 04:53 Active 10 ml FLUSH ASDIRECTED PRN Peripheral IV Insertion Adult [OM.PC] Routine Oth 07/26/20 04:53 Ordered Medication Orders Sodium Chloride (Saline Flush) 10 ml FLUSH ASDIRECTED PRN PRN Reason: Keep Vein Open Meds: Medications Generic Name Dose Route Start Last Admin Trade Name Freq PRN Reason Stop Dose Admin Sodium Chloride 10 ml 07/26/20 04:53 Saline Flush FLUSH ASDIRECTED PRN Keep Vein Open Discontinued Medications Generic Name Dose Route Start Last Admin Trade Name Bo PRN Reason Stop Dose Admin Hydromorphone HCl 1 mg 07/26/20 04:55 07/26/20 05:02 Dilaudid IVPUSH 07/26/20 04:56 1 mg ONETIME ONE Administration Ketorolac Tromethamine 15 mg 07/26/20 04:55 07/26/20 04:59 Toradol IVPUSH 07/26/20 04:56 15 mg ONETIME ONE Administration Prochlorperazine Edisylate 10 mg 07/26/20 04:54 07/26/20 05:04 Compazine IV 07/26/20 04:55 10 mg ONETIME ONE Administration - Re-Assessments/Exams Free Text/Narrative Re-Assessment/Exam: 07/26/20 05:27 IV access established. Pt. was given dilaudid 1 mg IV, toradol 15mg IV, and compazine 10mg IV. Pt. reported 100% resolution of the discomfort today. Departure - Departure Time of Disposition: 05:29 Disposition: Home, Self-Care 01 Clinical Impression: Migraine - Discharge Information Instructions: Recurrent Migraine Headache, [id number] Forms: ED Department Discharge Additional Instructions: Home to rest. Continue with current medications. Recheck in clinic in 7-10 days. Return to ER if discomfort worsens, if you are unable to hold down fluids, etc. Sepsis Event Note (ED) - Evaluation Sepsis Screening Result: No Definite Risk - Focused Exam Vital Signs: Vital Signs Temp Pulse Resp BP Pulse Ox 07/26/20 04:46 36.6 C 70 18 171/100 H 96 - Problem List Review Problem List Initiated/Reviewed/Updated: Yes - My Orders Last 24 Hours: My Active Orders 07/26/20 04:53 Sodium Chloride 0.9% [Saline Flush] 10 ml FLUSH ASDIRECTED PRN Peripheral IV Insertion Adult [OM.PC] Routine - Assessment/Plan Last 24 Hours: My Active Orders 07/26/20 04:53 Sodium Chloride 0.9% [Saline Flush] 10 ml FLUSH ASDIRECTED PRN Peripheral IV Insertion Adult [OM.PC] Routine Plan: Home to rest. Continue with current medications. Recheck in clinic in 7-10 days. Return to ER if discomfort worsens, if you are unable to hold down fluids, etc.
[2020-07-26 05:41] VITALS: BP 134/87; PULSE 63
== END 2020-07-26 05:31 | disposition home or self-care (01) ==
LOC: VM.ED 04:39
DX: G43.909 Migraine, unspecified, not intractable, without status migrainosus (principal); I12.9 Hypertensive chronic kidney disease with stage 1 through stage 4 chronic kidney disease, or unspecified chronic kidney disease; E78.00 Pure hypercholesterolemia, unspecified; N18.3 Chronic kidney disease, stage 3 (moderate); E11.40 Type 2 diabetes mellitus with diabetic neuropathy, unspecified; E11.22 Type 2 diabetes mellitus with diabetic chronic kidney disease; M19.90 Unspecified osteoarthritis, unspecified site; M41.9 Scoliosis, unspecified; Z88.8 Allergy status to other drugs, medicaments and biological substances; Z88.7 Allergy status to serum and vaccine; Z79.82 Long term (current) use of aspirin; Z79.4 Long term (current) use of insulin; Z79.899 Other long term (current) drug therapy
CPT/HCPCS: 99283; J0780; J1170; J1885

== ENCOUNTER 2023-01-29 14:36 | Observation (INO) | payer MEDICARE, BC ==
[2023-01-29] MEDS ORDERED: Sodium Chloride 0.9% 10 ML Syringe FLUSH PRN (15:10)
[2023-01-29] MEDS ORDERED: Sodium Chloride 0.9% 1,000 ML IV SCH (15:15)
[2023-01-29 15:34] LABS: PTT,PARTIAL THROMBOPLSTIN TIME 23.1 SEC (23.6-33.6)
[2023-01-29 15:47] LABS: ANION GAP 12.6 mmol/L (5-15); CHLORIDE,CL 109 mmol/L (98-107); ESTIMATED GFR 32 mL/min (>=60); SODIUM,NA 143 mmol/L (136-145)
[2023-01-29 16:00] LABS: CORONAVIRUS COVID-19 NAA NEGATIVE (NEGATIVE); RESPIRATORY SYNCYTIAL VIR NAA NEGATIVE (NEGATIVE)
[2023-01-29] MEDS ORDERED: Ipratropium 0.06% Nasal Spray 15 ML Bottle NASBOTH PRN (16:58)
[2023-01-29] MEDS ORDERED: Albuterol HFA 18 Gm Inhaler INH PRN (16:58)
[2023-01-29] MEDS ORDERED: Sodium Chloride 0.9% 1,000 ML IV ONE (17:21)
[2023-01-29] MEDS ORDERED: Pregabalin 50 MG Cap PO SCH (20:00)
[2023-01-29] MEDS ORDERED: atorvaSTATin 40 MG Tab PO SCH (21:00)
[2023-01-29] MEDS ORDERED: Gabapentin 100 MG Cap PO SCH (21:00)
[2023-01-30 07:41] LABS: ANION GAP 11.1 mmol/L (5-15)
[2023-01-30] MEDS ORDERED: Donepezil 10 MG Tab PO SCH (09:00)
[2023-01-30] MEDS ORDERED: Aspirin 81 MG Tab.EC PO SCH (09:00)
[2023-01-30] MEDS ORDERED: Azithromycin 250 MG Tab PO SCH (09:00)
[2023-01-30] MEDS ORDERED: Gabapentin 100 MG Cap PO PRN (09:00)
[2023-01-30] MEDS ORDERED: RIFABUTIN 150 MG PO SCH ×2 (09:00)
[2023-01-30] MEDS ORDERED: FERROUS GLUCONATE 324 MG PO SCH (09:00)
[2023-01-30] MEDS ORDERED: Cholecalciferol (Vitamin D3) 25 MCG Tab PO SCH (09:00)
[2023-01-30] MEDS ORDERED: ETHAMBUTOL HCL PO SCH (09:00)
[2023-01-30] MEDS ORDERED: Clopidogrel 75 MG Tab PO SCH (09:00)
[2023-01-30] MEDS ORDERED: Sotalol 80 MG Tab PO SCH (09:00)
[2023-01-30 14:28] VITALS: PULSE 68
[2023-01-30 16:57] VITALS: BP 136/93
== END 2023-01-30 17:15 | disposition home or self-care (01) ==
LOC: VM.ED 14:36 → VM.MS 16:30
PROVIDERS: ADMIT Physician Assistant; ATTEND Internal Medicine
DX: I21.4 Non-ST elevation (NSTEMI) myocardial infarction (principal); Z48.812 Encounter for surgical aftercare following surgery on the circulatory system; R53.83 Other fatigue; R53.1 Weakness; E78.00 Pure hypercholesterolemia, unspecified; I25.2 Old myocardial infarction; E11.21 Type 2 diabetes mellitus with diabetic nephropathy; I12.9 Hypertensive chronic kidney disease with stage 1 through stage 4 chronic kidney disease, or unspecified chronic kidney disease; N18.30 Chronic kidney disease, stage 3 unspecified; E11.22 Type 2 diabetes mellitus with diabetic chronic kidney disease; G43.909 Migraine, unspecified, not intractable, without status migrainosus; E11.40 Type 2 diabetes mellitus with diabetic neuropathy, unspecified; Z79.82 Long term (current) use of aspirin; Z79.4 Long term (current) use of insulin; Z88.8 Allergy status to other drugs, medicaments and biological substances; Z88.7 Allergy status to serum and vaccine; Z95.5 Presence of coronary angioplasty implant and graft; Z79.899 Other long term (current) drug therapy; Z79.02 Long term (current) use of antithrombotics/antiplatelets
CPT/HCPCS: 0241U; 36415; 71045; 80053; 81001; 82140; 82947; 83605; 83735; 84100; 84145; 84443; 84484; 85025; 85610; 85730; 86140; 87040; 93005; 93010; 93798; 96360; 96361; 97161; 99223; 99285; A9270; G0378; J7030

== ENCOUNTER 2023-03-08 11:14 | Emergency (ER) | payer MEDICARE, BC ==
[2023-03-08 11:52] LABS: BASOPHILS PERCENT AUTO 0.7 % (0.2-1.2); EOSINOPHILS ABSOLUTE AUTO 0.7 x10^3/uL (0.0-0.5); EOSINOPHILS PERCENT AUTO 12.1 % (0.0-4.0); HEMATOCRIT 42.6 % (40.0-52.0); HEMOGLOBIN 14.1 g/dL (14.0-18.0); IMMATURE GRAN ABSOLUTE AUTO 0.01 x10^3/uL (0.00-0.07); LYMPHOCYTES ABSOLUTE AUTO 0.8 x10^3/uL (1.0-4.8); LYMPHOCYTES PERCENT AUTO 13.6 % (25.0-50.0); MEAN CORPUSCULAR HGB CONC 33.1 g/dL (32.0-36.0); MEAN CORPUSCULAR VOLUME 87.7 fL (78.0-93.0); MONOCYTES ABSOLUTE AUTO 0.5 x10^3/uL (0.0-0.8); MONOCYTES PERCENT AUTO 9.6 % (2.0-11.0); NEUTROPHILS ABSOLUTE AUTO 3.5 x10^3/uL (1.8-7.7); NEUTROPHILS PERCENT AUTO 63.8 % (50.0-80.0); PLATELET COUNT,PLT 126 x10^3/uL (130-400); RED BLOOD CELL COUNT 4.86 x10^6/uL (4.5-6.0); WHITE BLOOD CELL COUNT,WBC 5.5 x10^3/uL (4.0-10.0)
[2023-03-08 12:15] LABS: ALANINE AMINOTRANSFERASE,ALT 173 U/L (16-63); ALBUMIN 3.2 g/dL (3.4-5.0); ALKALINE PHOSPHATASE 410 U/L (46-116); AMYLASE 45 U/L (25-115); ASPARTATE AMNIOTRANSFERASE,AST 111 U/L (15-37); BILIRUBIN TOTAL 0.4 mg/dL (0.2-1.0); BLOOD UREA NITROGEN,BUN 34 mg/dL (7-18); C-REACTIVE PROTEIN 2.2 mg/dL (<=0.9); CALCIUM 9.1 mg/dL (8.5-10.1); CARBON DIOXIDE,CO2 26 mmol/L (21-32); CHLORIDE,CL 104 mmol/L (98-107); CREATINE KINASE,CK 58 U/L (39-308); CREATININE 2.4 mg/dL (0.70-1.30); GLUCOSE RANDOM 278 mg/dL (70-99); LACTATE DEHYDROGENASE,LDH 280 U/L (85-227); LIPASE 66 U/L (73-393); POTASSIUM,K 4.4 mmol/L (3.5-5.1); PROTEIN TOTAL,TP 7.2 g/dL (6.4-8.2); SODIUM,NA 139 mmol/L (136-145)
[2023-03-08 12:21] LABS: ANION GAP 13.4 mmol/L (5-15); ESTIMATED GFR 27 mL/min (>=60)
[2023-03-08] MEDS ORDERED: Heparin Sodium 5,000 Units/ML Vial IVPUSH ONE (14:37)
[2023-03-08] MEDS ORDERED: Heparin Sodium/0.45% NaCl 25,000 UNITS/500 ML BAG IV SCH (14:45)
[2023-03-08] MEDS ORDERED: Aspirin 81 MG Tab.Chew PO ONE (14:49)
[2023-03-08 15:05] VITALS: BP 128/80; PULSE 58
== END 2023-03-08 15:36 | disposition short-term general hospital (02) ==
LOC: VM.ED 11:14
DX: I21.4 Non-ST elevation (NSTEMI) myocardial infarction (principal); I12.9 Hypertensive chronic kidney disease with stage 1 through stage 4 chronic kidney disease, or unspecified chronic kidney disease; E11.22 Type 2 diabetes mellitus with diabetic chronic kidney disease; E11.21 Type 2 diabetes mellitus with diabetic nephropathy; N18.30 Chronic kidney disease, stage 3 unspecified; I25.2 Old myocardial infarction; N40.0 Benign prostatic hyperplasia without lower urinary tract symptoms; I25.10 Atherosclerotic heart disease of native coronary artery without angina pectoris; E78.00 Pure hypercholesterolemia, unspecified; Z88.7 Allergy status to serum and vaccine; Z88.8 Allergy status to other drugs, medicaments and biological substances; Z79.82 Long term (current) use of aspirin; Z79.4 Long term (current) use of insulin; Z79.899 Other long term (current) drug therapy
CPT/HCPCS: 71046; 80053; 82150; 82550; 83615; 83690; 84484; 85025; 85730; 86140; 93005; 96365; 96376; 99285; A9270; J1644; 93010; 99284

== ENCOUNTER 2025-05-25 06:57 | Emergency (ER) | payer MEDICARE, BC ==
[2025-05-25] MEDS ORDERED: Sodium Chloride 0.9% 10 ML Syringe FLUSH PRN (07:17)
[2025-05-25] MEDS: diphenhydrAMINE 50 MG/ML SDV IVPUSH ONE (07:27)
[2025-05-25] MEDS: Ketorolac 15 MG/ML SDV IVPUSH ONE (07:30)
[2025-05-25 07:33] VITALS: PULSE 63
[2025-05-25 08:56] VITALS: BP 127/81
== END 2025-05-25 07:59 | disposition home or self-care (01) ==
LOC: VM.ED 06:57
DX: G43.909 Migraine, unspecified, not intractable, without status migrainosus (principal); I12.9 Hypertensive chronic kidney disease with stage 1 through stage 4 chronic kidney disease, or unspecified chronic kidney disease; N18.9 Chronic kidney disease, unspecified; M19.90 Unspecified osteoarthritis, unspecified site; E78.00 Pure hypercholesterolemia, unspecified; E11.22 Type 2 diabetes mellitus with diabetic chronic kidney disease; Z88.7 Allergy status to serum and vaccine; Z88.8 Allergy status to other drugs, medicaments and biological substances; Z79.82 Long term (current) use of aspirin; Z79.4 Long term (current) use of insulin; Z79.899 Other long term (current) drug therapy
CPT/HCPCS: 96374; 96375; 99283; 99283-25; J1171; J1200; J1790; J1885